=== PATIENT | female | born 1950 | race Caucasian/White ===

== ENCOUNTER 2017-12-25 06:16 | Day surgery (SDC) | payer OTHER ==
[2017-12-22 10:01] VITALS: BMI 27.4
[2017-12-25] MEDS ORDERED: DESFLURANE GAS 240 ML BOTTLE IH ONE (08:00)
[2017-12-25] MEDS ORDERED: LIDOCAINE HCL/PF 2% SDV 5ML VIAL ONE (08:08)
[2017-12-25] MEDS ORDERED: PROPOFOL 20 ML ONE ×2 (08:09)
[2017-12-25] MEDS ORDERED: MIDAZOLAM HCL 2 MG/2 ML SINGLE DOSE VIAL ONE (08:09)
[2017-12-25] MEDS ORDERED: oxyCODONE HCL 5 MG TABLET PO PRN (09:29)
[2017-12-25] MEDS ORDERED: ONDANSETRON 4 MG/2 ML VIAL IVPUSH PRN (09:29)
[2017-12-25] MEDS ORDERED: LACTATED RINGERS SOLUTION 1,000 ML IV SCH (09:30)
--- NOTE | 2017-12-25 11:26 | OP ---
Operative Note - Note: Operative Date: 12/25/17 Pre-Operative Diagnosis: bladder tumor Operation: cystoscopy/right ureteroscopy/transurethral resection and vaporization of bladder tumor Findings: 8cm x 6cm bulky bladder tumor involing right hemitrigone and right lateral wall with impingement on right ureteral orifice Post-Operative Diagnosis: Same as Pre-op Surgeon: Jacky Alves Anesthesia: General Specimens Removed: bladder tumor Estimated Blood Loss (mls): 20 Drains & Tubes with Location: 24 fr santana catheter
[2017-12-25 11:47] VITALS: TEMP 98.2
[2017-12-25 13:33] VITALS: BP 140/86; PULSE 86
--- NOTE | 2017-12-25 20:01 | OP ---
DATE OF OPERATION: 12/25/2017 PREOPERATIVE DIAGNOSIS: Bladder tumor. POSTOPERATIVE DIAGNOSIS: Bulky 8 cm x 6 cm bladder tumor involving right hemitrigone and right lateral wall with impingement on right ureteral orifice. PROCEDURE: Cystoscopy, right ureteroscopy, transurethral resection of bladder tumor, transurethral vaporization of bladder tumor. ATTENDING: Sosa Alves M.D. ANESTHESIA: General. DESCRIPTION OF PROCEDURE: Patient was brought in the operating room, placed in a supine position on the operating room table. General anesthesia and Levaquin are given preoperatively. Patient is then placed in the dorsal lithotomy position, prepped and draped in the usual sterile manner. The patient has a history of a bulky bladder tumor involving the right lateral wall with gross hematuria. The patient denies any flank pain or nausea or vomiting. The patient presents for transurethral resection and vaporization of the bladder tumor. All risks and benefits are explained to the patient, and the patient undertakes this procedure with full knowledge and consent. Cystoscopy is performed and a 6 cm x 8 cm plus bulky bladder tumor involving the right hemitrigone and lateral wall are noted. The left ureteral orifice is identified. Fluoroscopy is performed and a wire is placed in the left ureteral orifice, in order to help us find the right ureteral orifice. Attempts at finding the right ureteral orifice with the wire or open ended catheter were unsuccessful. Ureteroscopy was performed, and the right ureteral orifice was identified. The wire could not be passed proximally. The right ureteral orifice was intubated with the ureteroscope; however, due to the involvement of the tumor in the area surrounding the ureteral orifice, a wire could not be passed safely. Ureteroscopy was then stopped. The right ureteral orifice location was identified and noted. At this point, transurethral resection of the bladder tumor was performed. This was a large bladder tumor which had significant amount of mass. The tumor was resected with excellent hemostasis. The anatomy of the bladder muscle could not be differentiated from the tumor . It is evident the tumor has penetrated the bladder muscle. The bladder tumor chips are evacuated from the bladder utilizing evacuator. All the bladder tumor pieces are sent to pathology for evaluation. Excellent hemostasis is obtained. A 24 Portuguese catheter is placed to straight drainage. Patient tolerated procedure very well. No complications were noted. The disposition of the patient was to recovery room. SOSA SCHRADER M.D. /[id number]
--- NOTE | 2017-12-26 17:48 | PATH ---
Surgical Pathology Report Patient Name: MARY TEJADA [facility]. Rec. 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 NO FLAT CARCINOMA IN SITU (CIS) IDENTIFIED. Electronically Signed Adeline Allen M.D. Gross Description Received in formalin labeled "bladder tumor," is a 5.3 x 4.7 x 0.5 cm aggregate of morgan pink soft tissue fragments. The formalin is filtered and the specimen is entirely submitted in 6 cassettes. /12/25/2017 saudi12/25/2017
== END 2017-12-25 14:00 | disposition home or self-care (01) ==
LOC: JASU-SURG 06:16
PROVIDERS: ATTEND Urology
PROC: 0T5B8ZZ Destruction of Bladder, Via Natural or Artificial Opening Endoscopic (ICD-10-PCS; principal; 2017-12-25 08:00)
DX: C67.8 Malignant neoplasm of overlapping sites of bladder (principal); I10 Essential (primary) hypertension
CPT/HCPCS: 76000-TC-FY; 82962; 88305-TC

== ENCOUNTER 2021-09-15 05:10 | Inpatient (IN) | payer OTHER ==
[2021-09-15 05:58] LABS: HEMATOCRIT 17.6 % (32.4-45.2); MCH 30.3 pg (25.7-33.7); MCHC 33.7 g/dl (32.0-36.0); MEAN CELL VOLUME 89.8 fl (80-96); MEAN PLT VOLUME 7.2 fl (7.5-11.1); RBC 1.96 M/mm3 (3.60-5.2); RDW 29.1 % (11.6-15.6); RETICULOCYTES 4.17 % (0.5-1.5); WHITE BLOOD COUNT 4.3 K/mm3 (4.0-10.0)
[2021-09-15 06:14] LABS: INR 1.13 (0.83-1.09); PROTHROMBIN TIME (PATIENT) 13.2 SEC (9.7-13.0)
[2021-09-15 06:15] LABS: HEMOGLOBIN 5.9 GM/dL (10.7-15.3)
[2021-09-15 06:17] LABS: ACTIVATED PTT 24.3 SECONDS (25.2-36.5)
[2021-09-15 06:18] LABS: CHLORIDE 103 mmol/L (98-107); SODIUM 133 mmol/L (136-145)
[2021-09-15 06:21] LABS: ANION GAP 9 MMOL/L (8-16); BLOOD UREA NITROGEN 17.6 mg/dL (7-18); CALCIUM 8.8 mg/dL (8.5-10.1); CO2 21 mmol/L (21-32); GLUCOSE,RANDOM 144 mg/dL (74-106)
[2021-09-15 06:24] LABS: CREATININE 0.8 mg/dL (0.55-1.3); IRON SERUM 63 ug/dL (50-175); SGOT/AST 12 U/L (15-37); SGPT/ALT 16 U/L (13-61); TOTAL IRON BINDING CAPACITY 279 ug/dL (250-450)
[2021-09-15 06:25] LABS: BILIRUBIN,TOTAL 0.3 mg/dL (0.2-1); TOT PROT 6.6 g/dl (6.4-8.2)
[2021-09-15 06:27] LABS: ALK PHOS 95 U/L (45-117)
[2021-09-15 07:56] LABS: PLATELET COUNT 14 10^3/uL (134-434)
[2021-09-15] MEDS ORDERED: PANTOPRAZOLE SODIUM 40 MG VIAL IVPUSH ONE (09:03)
[2021-09-15] MEDS ORDERED: DEXAMETHASONE SOD PHOSPHATE 20 MG/5 ML VIAL IVPB ONE ×2 (09:04→10:27)
[2021-09-15] MEDS ORDERED: DEXAMETHASONE SOD PHOSPHATE 10 MG/1 ML VIAL ONE ×2 (09:07→10:32)
[2021-09-15] MEDS ORDERED: PANTOPRAZOLE SODIUM 40 MG VIAL ONE ×2 (09:07→19:50)
[2021-09-15 10:18] LABS: ANISOCYTOSIS 1+; MACROCYTOSIS 1+; PLATELET ESTIMATE DECREASED; ROULEAU 1+
[2021-09-15 18:41] LABS: URIC ACID 3.7 mg/dL (2.6-7.2)
[2021-09-15 18:42] LABS: HEMATOCRIT 24.1 % (32.4-45.2); HEMOGLOBIN 8.1 GM/dL (10.7-15.3); MCH 29.4 pg (25.7-33.7); MCHC 33.7 g/dl (32.0-36.0); MEAN CELL VOLUME 87.3 fl (80-96); RBC 2.76 M/mm3 (3.60-5.2); RDW 18.6 % (11.6-15.6); WHITE BLOOD COUNT 3.3 K/mm3 (4.0-10.0)
[2021-09-15 18:43] LABS: LDH 197 U/L (84-246)
[2021-09-15 18:55] LABS: ADD RBC MORPHOLOGY YES
[2021-09-15 19:08] LABS: URIC ACID 3.9 mg/dL (2.6-7.2)
[2021-09-15] MEDS ORDERED: metoPROLOL SUCCINATE 25 MG TAB.SR.24H (FP) ONE (19:49)
[2021-09-15] MEDS ORDERED: CEFTRIAXONE 1 GM/50 ML BAG ONE (19:50)
[2021-09-15 19:58] LABS: HIV INTERPRETATION NEGATIVE (NEGATIVE)
[2021-09-15] MEDS: CEFTRIAXONE 1 GM in DEXTROSE 5%-WATER - 50 ML IVPB SCH (20:05)
[2021-09-15 20:17] LABS: ANISOCYTOSIS 2+; MACROCYTOSIS 1+; OVALOCYTE 1+; PLATELET ESTIMATE DECREASED; TARGET CELLS 1+; TEAR DROP CELLS 1+
[2021-09-15 20:18] LABS: MEAN PLT VOLUME 7.9 fl (7.5-11.1); PLATELET COUNT 41 10^3/uL (134-434)
[2021-09-15] MEDS ORDERED: INSULIN SLIDING SCALE (NOVOLOG) 1 VIAL SQ ONE (20:22)
[2021-09-15] MEDS: INSULIN SLIDING SCALE (NOVOLOG) 1 VIAL SQ SCH ×2 (20:26→22:12)
[2021-09-15] MEDS: PANTOPRAZOLE SODIUM 40 MG VIAL IVPUSH SCH (22:12)
[2021-09-15] MEDS: metoPROLOL SUCCINATE 25 MG TAB.SR.24H (FP) PO SCH (23:03)
[2021-09-16 07:30] LABS: HEMATOCRIT 22.5 % (32.4-45.2); HEMOGLOBIN 7.7 GM/dL (10.7-15.3); MCHC 34.4 g/dl (32.0-36.0); MEAN CELL VOLUME 87.4 fl (80-96); MEAN PLT VOLUME 8.3 fl (7.5-11.1); RBC 2.57 M/mm3 (3.60-5.2); RDW 19.8 % (11.6-15.6); WHITE BLOOD COUNT 5.5 K/mm3 (4.0-10.0)
[2021-09-16 07:33] LABS: PLATELET COUNT 35 10^3/uL (134-434)
[2021-09-16 07:40] LABS: INR 1.08 (0.83-1.09); PROTHROMBIN TIME (PATIENT) 12.7 SEC (9.7-13.0)
[2021-09-16 07:44] LABS: ALBUMIN 3.3 g/dl (3.4-5.0); BLOOD UREA NITROGEN 23.5 mg/dL (7-18); CALCIUM 9.3 mg/dL (8.5-10.1); MAGNESIUM 2.6 mg/dL (1.8-2.4)
[2021-09-16 07:47] LABS: CREATININE 0.8 mg/dL (0.55-1.3); PHOSPHOROUS 4.6 mg/dL (2.5-4.9)
[2021-09-16 07:48] LABS: BILIRUBIN,TOTAL 0.7 mg/dL (0.2-1); URIC ACID 4.5 mg/dL (2.6-7.2)
[2021-09-16 07:49] LABS: TOT PROT 6.7 g/dl (6.4-8.2)
[2021-09-16] MEDS: INSULIN SLIDING SCALE (NOVOLOG) 1 VIAL SQ SCH ×4 (08:22→21:45)
[2021-09-16] MEDS ORDERED: PANTOPRAZOLE SODIUM 40 MG VIAL ONE (09:30)
[2021-09-16] MEDS: PANTOPRAZOLE SODIUM 40 MG VIAL IVPUSH SCH (09:54)
[2021-09-16] MEDS ORDERED: amLODIPine BESYLATE 10 MG TABLET (FP) PO SCH (10:00)
[2021-09-16] MEDS ORDERED: DEXAMETHASONE SOD PHOSPHATE 4 MG/1 ML VIAL IVPUSH SCH (10:00)
[2021-09-16] MEDS ORDERED: CEFTRIAXONE 1 GM/50 ML BAG ONE (10:07)
[2021-09-16] MEDS ORDERED: PT OWN MED DRAWER 7, Y5N ONE ×2 (10:07→13:55)
[2021-09-16] MEDS ORDERED: metoPROLOL SUCCINATE 25 MG TAB.SR.24H (FP) ONE (10:08)
[2021-09-16] MEDS: CEFTRIAXONE 1 GM in DEXTROSE 5%-WATER - 50 ML IVPB SCH (10:32)
[2021-09-16 11:14] LABS: ANISOCYTOSIS 1+; MACROCYTOSIS 0; OVALOCYTE 2+; PLATELET ESTIMATE DECREASED; TARGET CELLS 1+; TEAR DROP CELLS 1+
[2021-09-16] MEDS ORDERED: CYANOCOBALAMIN (VITAMIN B-12) 1000 MCG/1 ML VIAL SQ SCH (12:00)
[2021-09-16] MEDS ORDERED: DEXAMETHASONE 4 MG TABLET (FP) PO SCH (12:45)
[2021-09-16] MEDS: metoPROLOL SUCCINATE 25 MG TAB.SR.24H (FP) PO SCH (21:40)
[2021-09-16] MEDS ORDERED: ATORVASTATIN CA 10 MG TABLET (FP) PO SCH (22:00)
[2021-09-17 00:23] VITALS: TEMP 97.9; BMI 21.6
[2021-09-17 05:06] VITALS: BP 120/54; PULSE 85
[2021-09-17 07:07] LABS: IGA IMMUNOGLOBULIN 261 mg/dL (64-422); IGG QN IMMUNOGLOBULIN 898 mg/dL (586-1602); IGM QN SERUM 50 mg/dL (26-217)
[2021-09-17] MEDS ORDERED: PANTOPRAZOLE 40 MG TABLET PO SCH (10:00)
[2021-09-17 17:10] LABS: FREE KAPPA,SERUM 18.7 mg/L (3.3-19.4)
== END 2021-09-17 05:37 | disposition left against medical advice (07) | DRG 378 ==
LOC: JER 05:10 → JERBED 10:36 → J5S 09-16 20:14
PROVIDERS: ADMIT Internal Medicine; ATTEND Internal Medicine
PROC: 30233R1 Transfusion of Nonautologous Platelets into Peripheral Vein, Percutaneous Approach (ICD-10-PCS; principal; 2021-09-15)
PROC: 30233N1 Transfusion of Nonautologous Red Blood Cells into Peripheral Vein, Percutaneous Approach (ICD-10-PCS; 2021-09-15)
DX: K92.2 Gastrointestinal hemorrhage, unspecified (principal); K55.9 Vascular disorder of intestine, unspecified; N39.0 Urinary tract infection, site not specified; D62 Acute posthemorrhagic anemia; D69.3 Immune thrombocytopenic purpura; D61.818 Other pancytopenia; I10 Essential (primary) hypertension; E78.5 Hyperlipidemia, unspecified; E11.9 Type 2 diabetes mellitus without complications; F17.210 Nicotine dependence, cigarettes, uncomplicated; Z85.51 Personal history of malignant neoplasm of bladder; E53.8 Deficiency of other specified B group vitamins
CPT/HCPCS: 36415; 36430; 71045-TC-FY; 74177-TC; 80053; 82607; 82728; 82747; 82784; 82962; 83010; 83516; 83540; 83550; 83615; 83735; 83883; 84100; 84439; 84443; 84484; 84550; 85014; 85025; 85045; 85384; 85610; 85730; 86038; 86140; 86340; 86431; 86850; 86880; 86900; 86901; 86922; 87389; 87522; 88300-TC; 93005; 93010; 99285-25; C9803; P9034; P9058; Q9967; U0003; U0005